=== PATIENT | male | born 1980 | race Two or more races ===

== ENCOUNTER 2016-11-03 23:39 | Emergency (ER) | payer SELFPAY ==
--- NOTE | 2016-11-04 01:10 | ER Document Report ---
ED Extremity Problem, Upper - General Chief Complaint: R shoulder pain Stated Complaint: SHOULDER PAIN Time Seen by Provider: 11/04/16 00:42 Mode of Arrival: Ambulatory Information source: Patient TRAVEL OUTSIDE OF THE [place] IN LAST 30 DAYS: No - HPI Patient complains to provider of: Injury, Pain, Right, Shoulder Onset: This evening Recent injury: Yes Where: Home Quality of pain: Achy Severity of pain: Moderate Context: Fall Associated symptoms: None Exacerbated by: Movement Relieved by: Nothing Similar symptoms previously: No Recently seen / treated by doctor: No Notes: Patient is a 36-year-old male to the emergency room status post trip and fall landing on his right shoulder, complaining of right shoulder pain and swelling, he denies any other injury or trauma, no loss of consciousness, no numbness or tingling to extremity - Related Data Allergies/Adverse Reactions: No Known Allergies Allergy (Unverified 11/03/16 23:51) Past Medical History - General Information source: Patient - Social History Smoking Status: Current Every Day Smoker Family History: Reviewed & Not Pertinent Renal/ Medical History: Denies: Hx Peritoneal Dialysis Review of Systems - Review of Systems Constitutional: No symptoms reported EENT: No symptoms reported Cardiovascular: No symptoms reported Respiratory: No symptoms reported Gastrointestinal: No symptoms reported Genitourinary: No symptoms reported Male Genitourinary: No symptoms reported Musculoskeletal: See HPI Skin: No symptoms reported Hematologic/Lymphatic: No symptoms reported Neurological/Psychological: No symptoms reported -: Yes All other systems reviewed and negative Physical Exam - Vital signs Vitals: Temp Pulse Resp BP Pulse Ox 98.1 F 120 H 20 120/86 H 97 11/03/16 23:47 11/03/16 23:47 11/03/16 23:47 11/03/16 23:47 11/03/16 23:47 - Notes Notes: - General General appearance: Appears well, Alert In distress: None - HEENT Head: Normocephalic, Atraumatic Eyes: Normal Conjunctiva: Normal Extraocular movements intact: Yes Eyelashes: Normal Pupils: PERRL - Respiratory Respiratory status: No respiratory distress - Cardiovascular Rhythm: Regular - Abdominal Inspection: Normal - Back Back: Normal - Extremities General upper extremity: Tenderness over right AC joint, moderate swelling, pain with range of motion testing, sensation and motor is intact with 2+ radial pulses General lower extremity: Normal inspection - Neurological Neuro grossly intact: Yes Orientation: AAOx4 [place] Coma Scale Eye Opening: Spontaneous [place] Coma Scale Verbal: Oriented [place] Coma Scale Motor: Obeys Commands [place] Coma Scale Total: 15 - Psychological Associated symptoms: Normal affect, Normal mood - Skin Skin Temperature: Warm Skin Moisture: Dry Skin Color: Normal Course - Re-evaluation Re-evalutation: 11/04/16 02:47 Imaging findings were discussed with patient, he was placed in a sling and provided with Motrin for pain control, advised follow-up with an orthopedic surgeon or return if symptoms worsen, patient acknowledges understanding and agreeable with this plan - Vital Signs Vital signs: Temp Pulse Resp BP Pulse Ox 97.9 F 96 16 124/68 98 11/04/16 02:02 11/04/16 02:02 11/04/16 02:02 11/04/16 02:02 11/04/16 02:02 - Diagnostic Test Radiology reviewed: Image reviewed, Reports reviewed Procedures - Immobilization Right Arm Time completed: 01:45 Pre-Proc Neuro Vasc Exam: Normal Immobilizer type: Sling Performed by: PCT Post-Proc Neuro Vasc Exam: Normal Alignment checked and good: Yes Discharge - Discharge Clinical Impression: AC separation Qualifiers: Encounter type: initial encounter Laterality: right Qualified Code(s): S43.101A - Unspecified dislocation of right acromioclavicular joint, initial encounter Condition: Stable Disposition: HOME, SELF-CARE Instructions: Sling as Treatment ([facility]), AC Joint Sprain ([facility]), Sling to be Used ([facility]) Additional Instructions: Follow up with your primary care provider and an orthopedic surgeon in one to 2 days. Return to the emergency room immediately if symptoms worsen or any additional concerns. Ice and elevate the affected extremity. Prescriptions: Ibuprofen [Motrin 600 Mg Tablet] 600 mg PO TID #30 tablet Forms: Return to Work Referrals: MARLYS FUENTES MD [ACTIVE STAFF] - Follow up as needed
[2016-11-04] MEDS ORDERED: IBUPROFEN 600 MG TABLET PO ONE (01:44)
--- NOTE | 2016-11-04 01:45 | RADIOLOGY REPORT (SQ) ---
EXAM DESCRIPTION: SHOULDER RIGHT 2 OR MORE VIEWS COMPLETED DATE/TIME: 11/04/2016 1:35 am REASON FOR STUDY: Pain s/p injury COMPARISON: None. NUMBER OF VIEWS: Three views. TECHNIQUE: Internal rotation, external rotation, and Y view images acquired of the right shoulder. LIMITATIONS: None. FINDINGS: MINERALIZATION: Normal. BONES: 1.7 cm fragmentation of the right distal clavicle with 1.4 cm right acromioclavicular separati on mild deformity of the right distal clavicular shaft appears chronic. JOINTS: No dislocation. VISUALIZED LUNGS AND RIBS: No pneumothorax. No rib fracture. SOFT TISSUES: No radiopaque foreign body. OTHER: No other significant finding. IMPRESSION: NO RADIOGRAPHIC EVIDENCE OF ACUTE INJURY. Chronic right AC separation. TECHNICAL DOCUMENTATION: JOB ID: [id number] [employer]- All Rights Reserved
[2016-11-04 02:03] VITALS: BP 124/68
== END 2016-11-04 02:03 | disposition home or self-care (01) ==
LOC: ER 23:39
DX: S43.101A Unspecified dislocation of right acromioclavicular joint, initial encounter (principal); W19.XXXA Unspecified fall, initial encounter; Y92.009 Unspecified place in unspecified non-institutional (private) residence as the place of occurrence of the external cause; F17.200 Nicotine dependence, unspecified, uncomplicated
CPT/HCPCS: 99283; 73030; L3650